=== PATIENT | female | born 1985 | race Caucasian/White ===

== ENCOUNTER 2020-01-17 08:04 | Day surgery (SDC) | payer OTHER ==
[2020-01-17] MEDS ORDERED: NS 0.9% VIAL 40 ML ONE (08:20)
[2020-01-17] MEDS ORDERED: CEFAZOLIN SODIUM 1 GM/VIAL ONE (08:20)
[2020-01-17] MEDS ORDERED: Ringers Lactate 1,000 ML IV ONE ×3 (08:21→08:29)
[2020-01-17] MEDS ORDERED: Mastisol Adhesive Liq ONE (08:21)
[2020-01-17] MEDS ORDERED: LIDOCAINE 1% W/EPI 1:100,000 MDV 20 ML VIAL ONE (08:21)
[2020-01-17] MEDS ORDERED: GENTAMICIN SULF 80 MG/2ML INJ ONE (08:21)
[2020-01-17] MEDS ORDERED: BACITRACIN 50000 UNIT VIAL ONE (08:22)
[2020-01-17 08:28] LABS: Specific Gravity >= 1.030 (1.005-1.030)
[2020-01-17] MEDS ORDERED: CEFAZOLIN/SWI 1gm 1 GM/10 ML SYR ONE (08:29)
[2020-01-17] MEDS ORDERED: dexAMETHasone 10 MG/ML VIAL ONE (08:34)
[2020-01-17] MEDS ORDERED: propofoL 200 MG/20 ML VIAL IV ONE (08:34)
[2020-01-17] MEDS ORDERED: FENTANYL CITR 250 MCG/5 ML ONE (08:34)
[2020-01-17] MEDS ORDERED: MIDAZOLAM HCL 2 MG/2 ML INJ ONE (08:34)
[2020-01-17] MEDS ORDERED: LIDOCAINE 1% MPF 5 ML VIAL ONE (08:34)
[2020-01-17] MEDS ORDERED: NS 0.9% VIAL 10 ML ONE (08:34)
[2020-01-17] MEDS ORDERED: ONDANSETRON 4 MG/2 ML VIAL ONE ×2 (08:35→12:14)
[2020-01-17] MEDS ORDERED: VECURONIUM 10 MG/VIAL IV ONE ×2 (08:35→08:37)
[2020-01-17] MEDS ORDERED: SCOPOLAMINE HYDROBROMIDE PATCH TD ONE (08:43)
[2020-01-17] MEDS ORDERED: GLYCOPYRROLATE 0.2 MG/ML SYR ONE (12:12)
[2020-01-17] MEDS ORDERED: KETOROLAC 30 MG/ML INJ ONE (12:13)
[2020-01-17] MEDS ORDERED: NEOSTIGMINE 1 MG/ML -5 ML ONE (12:14)
[2020-01-17] MEDS: HYDROMORPHONE HCL 1 MG/ML INJ ONE ×2 (13:30→13:40)
[2020-01-17] MEDS ORDERED: PROMETHAZINE INJ 25 MG/ML AMP ONE (13:37)
[2020-01-17 13:46] VITALS: TEMP 98.2
[2020-01-17] MEDS ORDERED: CODEINE 30MG/APAP 300MG TAB ONE (14:36)
[2020-01-17 15:35] VITALS: BP 106/62; O2SAT 100
--- NOTE | 2020-01-18 01:43 | OP ---
Surgeon: Maicol Lozano MD Shade Classifier: Allan. Preoperative Diagnosis: Breast descent. Postoperative Diagnosis: Breast descent. Procedures Performed: Breast lift. Anesthesia: General. Description Of Procedure: After satisfactory general anesthesia, the chest was prepped with DuraPrep , dry sterile drapes applied in the usual manner. A 38 mm template was used to outline the right and left areola, then a transverse curvilinear incisions were made. Intervening skin was de-epitheliali zed with dermabrader or EpiCut. Dissection proceeded down through a transverse incision. Flap was a bout 1.1 cm thick towards the sternum clavicle, anterior axillary line. Then, the inferior incision was made and then a de-epithelialized tissue itself formed into a cone and sewn with 2-0 PDS suture. Straps were elevated at 12 o'clock, 1:30, and 3 o'clock position from the base of the cone. The str aps were woven in and out the pectoralis major muscle back to base of cone back to pectoralis muscle back to base of cone, tied to itself with 2-0 PDS sutures. This was done for 12 o'clock and 1:30 str ap. The 3 o'clock strap was sewn over the sternum at 3 o'clock position with 2-0 Ethibond. Mirror i maging was done on the opposite side. The wound was stapled and temporary stapled shut. The patient was sat up, asymmetry was corrected, checked and then the dog ears marked out. The patient was plac ed supine. Dog ears were excised and was irrigated with antibiotic solution. A 10 SADAF was brought ou t the axilla and sewn in place with 2-0 silk. The wounds were closed with 3-0 Vicryl interrupted, fo llowed by 3-0 PDS suture running subcuticular tied from medial to lateral, lateral to medial, tied in the vertical meridian of the breast. After both sides were done, patient was sat up, site for new n ipple-areolar complex was marked out. A 38 mm template was used to outline the tissue. Tissue was c ored out. Nipple was delivered and sewn with interrupted 4-0 PDS, followed by 4-0 PDS running subcut icular. Dressings consisted of tincture of benzoin, Steri-Strips, 5 x 5s, fluffs, and Naveen wrap. The patient tolerated the procedure well. 24 g removed from the left and 56 g from the right. LOLA/ZAC Voice ID: [id number] Report ID: [id number]
== END 2020-01-17 14:20 | disposition home or self-care (01) ==
LOC: OR 08:04
PROVIDERS: ATTEND Specialist
PROC: 0HSV0ZZ Reposition Bilateral Breast, Open Approach (ICD-10-PCS; principal; 2020-01-17 09:00)
DX: N64.81 Ptosis of breast (principal)
CPT/HCPCS: 81025; 88305; 19316; J2704; J2550; J1580; J2250; J3010; J1100; J1170; J2710; J0690 ×2; J7120 ×2; J2405 ×2